=== PATIENT | male | born 1985 | race Two or more races ===

== ENCOUNTER 2023-05-18 10:20 | Emergency (ER) | payer MEDICAID ==
[~2023-05-18] VITALS: Ht 167.6 cm; Wt 71.6 kg
[2023-05-18] MEDS ORDERED: AMOX-117 PO (12:04)
--- NOTE | 2023-05-18 12:09 | NUR ---
I AGREE WITH THE ASSESSMENT DONE BY JOSE RAUL SANTOS LVN.
[2023-05-18 12:51] VITALS: BP 148/98; PULSE 80; RESP 17; TEMP 98; O2SAT 98
== END 2023-05-18 12:53 | disposition home or self-care (01) ==
LOC: ER 10:21
DX: K08.89 Other specified disorders of teeth and supporting structures (principal); R09.89 Other specified symptoms and signs involving the circulatory and respiratory systems; Z72.89 Other problems related to lifestyle; Z79.899 Other long term (current) drug therapy
CPT/HCPCS: 99283

== ENCOUNTER 2023-12-05 18:51 | Emergency (ER) | payer MEDICAID ==
[~2023-12-05] VITALS: Ht 167.6 cm; Wt 75.8 kg
[2023-12-05 19:07] VITALS: BP 114/95; PULSE 105; RESP 20; TEMP 98.5; O2SAT 100
[2023-12-05 19:36] LABS: BASOPHILS % (AUTO) 0.1 % (0-1); EOSINOPHILS # (AUTO) 0.1 X10'3 (0-0.9); EOSINOPHILS % (AUTO) 0.6 % (0-6); HEMATOCRIT 52.5 % (42.0-52.0); HEMOGLOBIN 17.5 g/dl (14.0-17.9); LYMPHOCYTES # (AUTO) 0.6 X10'3 (1.1-4.8); LYMPHOCYTES % (AUTO) 3.6 % (21-51); MEAN CORPUSCULAR HEMOGLOBIN 28.6 PG (27.0-31.0); MEAN CORPUSCULAR HGB CONC 33.3 g/dL (33.0-36.5); MEAN CORPUSCULAR VOLUME 85.8 FL (78-98); MEAN PLATELET VOLUME 8.5 FL (7.4-10.4); MONOCYTES % (AUTO) 6.2 % (2-12); NEUTROPHILS # (AUTO) 14.1 X10'3 (1.8-7.7); NEUTROPHILS % (AUTO) 89.5 % (42-75); PLATELET COUNT 275 X10'3 (140-440); RED BLOOD COUNT 6.12 X10'6 (4.70-6.10); RED CELL DISTRIBUTION WIDTH 13.9 % (11.5-14.5); WHITE BLOOD COUNT 15.8 X10'3 (4.5-11.0)
[2023-12-05 19:47] LABS: ALANINE AMINOTRANSFERASE 23 U/L (12-78); ALBUMIN 4.9 G/DL (3.4-5.0); ALBUMIN/GLOBULIN RATIO 1.1 (1.1-1.5); ALKALINE PHOSPHATASE 90 IU/L (46-116); ANION GAP 11 (8-16); ASPARTATE AMINO TRANSFERASE 19 U/L (10-37); BILIRUBIN,TOTAL 0.7 MG/DL (0.1-1.0); BLOOD UREA NITROGEN 28 MG/DL (7-18); BUN/CREATININE RATIO 20.7 (10.0-20.0); CALCIUM 10.1 MG/DL (8.5-10.1); CHLORIDE 102 MMOL/L (99-107); CREATININE 1.35 MG/DL (0.60-1.10); GLUCOSE 137 MG/DL (70-104); LIPASE 47 U/L (16-77); POTASSIUM 3.9 MMOL/L (3.5-5.1); SODIUM 138 MMOL/L (135-145); TOTAL CARBON DIOXIDE 24.8 MMOL/L (24-32); TOTAL PROTEIN 9.2 G/DL (6.4-8.2); eCRCL 68 ML/MIN; eGFR 60 ML/MIN
== END 2023-12-06 02:52 | disposition left against medical advice (07) ==
LOC: ER 18:51
DX: R10.9 Unspecified abdominal pain (principal); R11.10 Vomiting, unspecified; Z53.21 Procedure and treatment not carried out due to patient leaving prior to being seen by health care provider
CPT/HCPCS: 36415; 80053; 83690; 85025

== ENCOUNTER 2024-12-30 16:16 | Emergency (ER) | payer MEDICAID ==
[~2024-12-30] VITALS: Ht 165.1 cm; Wt 75.6 kg
[2024-12-30 16:19] VITALS: BP 178/123; PULSE 107; RESP 18; O2SAT 96
--- NOTE | 2024-12-30 17:51 | Physician Documentation ---
History of Present Illness ~ Chief Complaint: Medical Clearance Stated Complaint: MEDICAL CLEARANCE Time Seen by MD: 16:25 Primary Medical Doctor: NONE HPI This is a 39-year-old male with a history of alcohol abuse who presents requesting medical clearance to enter [facility] rehab for alcohol abuse, patient reports daily heavy drinking of approximately seven to nine dri nks daily. Patient reports last drink last night. Tetanus within 5 years?: No Medication Reconciliation Allergies: Coded Allergies: No Known Allergies (Unverified , 05/18/23) Scheduled PRN Chlordiazepoxide Hcl (Librium), 25 MG PO BID PRN for for anxiety/agitation Past Medical History Past Medical History: No Pertinent History Past Surgical History: noncontributory Alcohol Use: Sober Lives In: Home Review of Systems ROS As stated above in the HPI, otherwise all systems are reviewed and negative. Physical Exam Vital Signs: Temperature: 97.6, Source: Temporal, Heart Rate: 107, Respiratory Rate: 18, BP: 178/123, Pulse Oximetry: 96, Weight: 75.600 Oxygen Flow Rate: 0 Physical Exam VITALS: Reviewed and as above. GENERAL: Alert, nontoxic appearing, no apparent distress. HEENT: PERRLA, EOMI RESPIRATORY: No increased work of breathing, no respiratory distress, speaking in full clear sentences, clear lung sounds in all dorantes CV: Mildly tachycardic, regular rate and rhythm no murmur BACK: No CVA tenderness GI: Soft, nondistended, nontender, no rebound, no guarding bowel sounds present MUSCULOSKELETAL: SKIN: Warm and dry NEURO: Mildly tremulous PSYCH: Normal mood and affect no agitation Progress Results/Orders Results/Orders Vital Signs 12/30/24 12/30/24 16:19 18:10 Temp 97.6 97.6 Pulse 107 Resp 18 B/P (MAP) 178/123 Pulse Ox 96 O2 Flow Rate 0 Medical Decision Making Findings This 39-year-old male with a history of alcohol abuse presented requesting [facility] clearance to enter a rehab facility, patient's last drink was 24 hours prior and patient is demonstrating evidence of mild alcohol withdrawal as he is mildly tremulous, it is reassuring patient reports no history of seizures or hallucinations with alcohol withdrawal. Patient is otherwise well-appearing benign physical exam. As patient is experiencing some symptoms of alcohol withdrawal he will be discharged with a course of Librium to assist with alcohol withdrawal symptoms, additionally reassuring patient will be entering a residential program to aid in his continued sobriety and reassurance that he will not drink alcohol while taking Librium. Patient is appropriate for outpatient follow up, and is cleared to enter rehab program. Patient provided h ome care instructions, return to care precautions, and follow up instructions which he verbalized understanding of. Differential Dx:Considerations: Include: Intoxication-Alcohol, Intoxication- Other drug, Substance abuse disorder, Alcohol withdrawl syndrom, Other (Anxiety) Departure Time of Disposition: 17:54 Disposition: 01 HOME / SELF CARE / HOMELESS Impression: Primary Impression: General medical exam Additional Impression: Alcohol withdrawal Qualified Codes: F10.930 - Alcohol use, unspecified with withdrawal, uncomplicated Condition: Improved Discharge Instructions: Alcohol Withdrawal Syndrome, [id number], Medical Screening Exam Additional Instructions: You are medically cleared to enter your rehabilitation program, please take the Librium as prescribed to help with your alcohol withdrawal symptoms and to increase the chance of seizure from alcohol withdrawal. Please follow up with your primary care provider or the [facility] in the next few days. Please return to the emergency department for any new or worsening concerning symptoms. Referrals: NO PRIMARY CARE PROVIDER (PCP) Prescriptions Chlordiazepoxide Hcl (Librium) 25 Mg Capsule 25 MG PO BID PRN for for anxiety/agitation MDD 150 mg for 14 Days, #32 CAP Use 2 tablets by mouth 3 times a day for 2 days, then 2 tablets twice a day for 2 days, then 1 tablet 3 times a day for 2 days, then 1 tablet twice a day for 2 days, then 1 tablet a day for 2 days Prov: CARA RASHID 12/30/24 Education Educated: Patient Educated regarding: diagnosis, treatment, prognosis, need for follow up Signature Scribe Signature: No scribe Attestation: The note accurately reflects work and decisions made by me.FE Akbar 12/31/24 02:32 CARA RASHID Dec 30, 2024 17:51
[2024-12-30] MEDS ORDERED: CHLO25CA10 PO (18:04)
[2024-12-30 18:10] VITALS: TEMP 97.6
== END 2024-12-30 18:12 | disposition home or self-care (01) ==
LOC: ER 16:16
DX: F10.239 Alcohol dependence with withdrawal, unspecified (principal); Y90.9 Presence of alcohol in blood, level not specified
CPT/HCPCS: 99283